=== PATIENT | female | born 1965 | race Hispanic/Latino ===

== ENCOUNTER 2021-01-24 09:56 | Outpatient (CLI) | payer OTHER, SELFPAY ==
[2021-01-24 11:11] LABS: Influenza A QL RT-PCR Negative (Negative); Influenza B QL RT-PCR Negative (Negative); SARS-CoV-2 RNA PCR Positive (Negative)
== END 2021-01-24 09:57 | disposition home or self-care (01) ==
PROVIDERS: PCP Family Medicine; Visit Provider Family Medicine
DX: U07.1 COVID-19 (principal); R05.9 Cough, unspecified
CPT/HCPCS: 87502; C9803; U0003; U0005

== ENCOUNTER 2021-01-25 11:00 | Outpatient (CLI) | payer OTHER, SELFPAY ==
[2021-01-25] MEDS: FAMOTIDINE 20 MG TABLET PO (11:30)
[2021-01-25] MEDS: ACETAMINOPHEN 325 MG TABLET 650 MG PO (11:30)
[2021-01-25] MEDS: diphenhydrAMINE HCl CAP 25 MG CAPSULE PO (11:30)
[2021-01-25 11:35] VITALS: BP 134/81; PULSE 62; RESP 18; TEMP 36.6; O2SAT 95
[2021-01-25 13:00] VITALS: BP 119/69; PULSE 73; RESP 16; TEMP 36.7; O2SAT 94
--- NOTE | 2021-01-25 13:40 | PC.NURSE ---
Patient tolerated infusion well. No s/s of adverse reactions noted. IV site removed, tip intact, dressing applied to site. Education provided to patient about infusion. Denies any questions at this time. Patient accompanied to front door by this nurse, pt. left ambulatory.
== END 2021-01-25 11:01 | disposition home or self-care (01) ==
LOC: CHSLAB 11:02 → CHSTREATRM 11:28
PROVIDERS: PCP Family Medicine; Visit Provider Family Medicine
DX: U07.1 COVID-19 (principal)
CPT/HCPCS: 96365; A9270; J7050; M0243; Q0244

== ENCOUNTER 2022-04-24 08:04 | Outpatient (CLI) | payer OTHER, SELFPAY ==
--- NOTE | ~2022-04-24 | US_ITS ---
EXAMINATION: US right upper quadrant DATE: 04/24/2022 08:49 INDICATION: Abdominal pain. TECHNIQUE: Multiple grayscale and Doppler ultrasound images of the abdomen were obtained. COMPARISON: None FINDINGS: The visualized portions of the head and body of the pancreas are normal. The liver is macrina l without focal lesion. There is normal flow in main portal vein. There is a gallstone in the gallbla dder, which is normal in size. Gallbladder wall thickening is noted. There is no sonographic Powell s ign. The common duct is normal and measures 5 mm. There is a 1.5 cm cyst in right kidney. IMPRESSION: 1. Cholelithiasis. Gallbladder wall thickening may be seen with chronic cholecystitis, chronic liver disease, or interstitial edema. No gallbladder distention or sonographic Powell sign to suggest acute cholecystitis. Reviewed, dictated and finalized at location A. NOLOGY SUPPORT ANALYST IMPRESSION: 1. Cholelithiasis. Gallbladder wall thickening may be seen with chronic cholecy stitis, chronic liver disease, or interstitial edema. No gallbladder distention or sonographic Powell sign to suggest acute cholecystitis.
--- NOTE | ~2022-04-24 | MM_ITS ---
EXAMINATION: MM screening radha BI w [place] HISTORY: Screening mammogram TECHNIQUE: Craniocaudal and mediolateral oblique 3-D tomosynthesis images were obtained and synthetic 2-D images were generated. CAD analysis was submitted and interpreted. COMPARISON: No prior mammogram is available for comparison at this institution. BREAST PARENCHYMAL COMPOSITION: There are scattered areas of fibroglandular density. FINDINGS: There is no evidence of suspicious mass, calcification, or architectural distortion to sugg est malignancy in either breast. IMPRESSION: 1. No mammographic evidence of malignancy. 2. Recommend routine screening mammography in one year. BI-RADS Category 1: Negative Reviewed, dictated and finalized at location A. RITY ASSESSOR
== END 2022-04-24 08:05 | disposition home or self-care (01) ==
LOC: CHSIMG 08:05
PROVIDERS: PCP Family Medicine; Visit Provider Family Medicine
DX: Z12.31 Encounter for screening mammogram for malignant neoplasm of breast (principal); R10.9 Unspecified abdominal pain; K80.20 Calculus of gallbladder without cholecystitis without obstruction
CPT/HCPCS: 76705; 77063; 77067

== ENCOUNTER 2022-05-14 06:18 | Day surgery (SDC) | payer OTHER, SELFPAY ==
[2022-05-07 14:03] VITALS: BMI 37.3
[2022-05-08 09:03] VITALS: BMI 35.2
--- NOTE | 2022-05-13 15:08 | WPDANESEPPF ---
Anes - Initial Pre Proc Eval Procedure: Operation Date: 05/14/22 08:00 Proposed Procedures p Esophagogastroduodenoscopy - Phong Altamirano DO s Screening Colonoscopy - Phong Altamirano DO Date/Time: 05/13/22 15:08 Surgeon: Phong Altamirano DO Pre Op Diagnosis: Epigastric Pain, Cholelithiasis w/Chronic Cholecy. Patient Data Age: 57 Gender: F Height: 1.68 m Weight: 99 kg Allergies Allergy/AdvReac Type Severity Reaction Status Date / Time naproxen Allergy Unknown SWELLING Verified 05/14/22 07:09 OF MOUTH AND THROAT tramadol Allergy Unknown SWELLING Verified 05/14/22 07:09 OF MOUTH AND THROAT Home Medications Medication Instructions Recorded Confirmed Type albuterol sulfate 90 mcg/actuation 1 puff inhalation Q4H 04/29/22 05/14/22 History aerosol inhaler (ProAir HFA) esomeprazole magnesium 40 mg 40 mg PO DAILY 04/29/22 05/14/22 History capsule,delayed release Patient hx anesthesia problems: none Family hx anesthesia problems: none Results Review: All pre-operative results and documents have been reviewed as part of the pre-operative evaluation. [facility] Past Medical History Medical History (Updated 05/13/22 @ 15:08 by Wolf Kebede DO) Asthma GERD (gastroesophageal reflux disease) Surgical History Surgical History S/P breast biopsy, right S/P S/P carpal tunnel release Family History Family History Mother Diabetes mellitus Sibling Breast cancer Cervical cancer Unknown Diabetes mellitus Heart disease Cancer Social History Social History Smoking status: Former smoker Alcohol intake: current Drinks per week: 4 Substance use: never Substance use type: does not use Living arrangements: with family Spiritual care concerns: No Anes - Eval Final PreProcedure Day of Procedure 05/13/22 15:08 Patient weight: obese Heart: regular rate and rhythm Lungs: clear to auscultation Airway: Mallampati scale class II Neurological: alert and oriented Last oral intake: >/= 8 hours ASA classification: II Emergent: no Anesthetic plan: proceed Anesthesia type and monitoring: general GIVS and standard monitoring Results Review: All pre-operative results and documents have been reviewed as part of the pre-operative evaluation. Informed Consent: The patient's anesthetic plan and its attendant risks and benefits were discussed with the patient/family/POA. Questions were solicited and answers provided to the satisfaction of the patient/family/POA.
[2022-05-14 07:15] VITALS: BP 116/72; PULSE 69; RESP 18; TEMP 36.2; O2SAT 100; BMI 35.9
--- NOTE | 2022-05-14 07:29 | WPDHPUPDATE1 ---
History and Physical Update Update Date/Time: 05/14/22 07:29 History and Physical has been reviewed, including an updated exam of the patient. There are NO changes in the patient's condition. Risks, benefits, and alternatives have been discussed and questions answered. Patient agrees to proceed with procedure.
[2022-05-14] MEDS: LACTATED RINGERS 1,000 ML 150 ML IV CONT (07:33)
[2022-05-14 08:37] VITALS: BP 100/69; PULSE 70; RESP 14; O2SAT 99
[2022-05-14 08:47] VITALS: BP 106/57; PULSE 69; RESP 16; O2SAT 99
[2022-05-14 08:57] VITALS: BP 114/73; PULSE 70; RESP 16; O2SAT 99
--- NOTE | 2022-05-14 09:24 | SUR.PHASEII ---
0900; PT AWAKE AND ALERT. TALKATIVE. DENIES PAIN. EATING AND DRINKING.
--- NOTE | 2022-05-14 11:39 | WPDANESPN ---
Anes - Prog Note Post-Op Date/Time: 05/14/22 11:39 Cardiovascular status: normal Respiratory status: normal Airway patency: baseline Mental status: baseline Post-Op hydration status: normal Vital Signs: Last Vital Signs Temp 36.2 C L 05/14/22 07:15 Pulse 70 05/14/22 08:57 Resp 16 05/14/22 08:57 BP 114/73 05/14/22 08:57 Pulse Ox 99 05/14/22 08:57 O2 Del Method Room Air 05/14/22 08:57 Pain Score (VAS): 0 I/O: Intake & Output 05/13/22 05/14/22 05/14/22 23:59 07:59 15:59 Intake Total 1000 Balance 1000 Post-procedural complaints: none Patient Feedback: Patient satisfied with anesthetic care. Other Findings: Patient vital signs back to baseline. Patient denies nausea and vomiting. Patient's pain under control. Patient OK for discharge.
== END 2022-05-14 09:25 | disposition home or self-care (01) ==
PROVIDERS: PCP Family Medicine; Visit Provider Surgery
PROC: 0DJ08ZZ Inspection of Upper Intestinal Tract, Via Natural or Artificial Opening Endoscopic (ICD-10-PCS; CPT 43235; principal; 2022-05-14 08:00)
PROC: 0DJD8ZZ Inspection of Lower Intestinal Tract, Via Natural or Artificial Opening Endoscopic (ICD-10-PCS; CPT 45378; 2022-05-14 08:00)
DX: R10.13 Epigastric pain (principal)
CPT/HCPCS: 45378; 43239

== ENCOUNTER 2022-05-14 09:00 | Outpatient (NON) | payer OTHER, SELFPAY | END 2022-05-14 09:01 | disposition home or self-care (01) | LOC: ANHLAB 05-15 09:13 | PROVIDERS: PCP Family Medicine; Visit Provider Surgery | DX: R10.13 Epigastric pain (principal) | CPT/HCPCS: 88305 ==

== ENCOUNTER 2022-05-28 06:07 | Day surgery (SDC) | payer OTHER, SELFPAY ==
[2022-05-15 10:03] VITALS: BMI 37.3
[2022-05-19 13:23] VITALS: BMI 35.2
[2022-05-28] VITALS (8 sets, daily range): BP systolic 95–119; BP diastolic 51–70; PULSE 52–79; RESP 14–20; TEMP 36.6–36.9; O2SAT 93–99
[2022-05-28] MEDS: ACETAMINOPHEN 500 MG TABLET 1000 MG PO (06:25)
--- NOTE | 2022-05-28 07:18 | PM.IMHP ---
H&P: HPI History of Present Illness Date/Time: 05/28/22 07:18 Chief Complaint: cholelithiasis Narrative: 57 yo woman presents for laparoscopic cholecystectomy. She denies any other changes since last seen in office. Review of Systems Review of Systems: All systems reviewed & are unremarkable except as noted in HPI and below Constitutional: Constitutional: Denies chills, Denies fever(s), Denies headache(s) and Denies weight loss Eyes: Eyes: Denies change in vision ENT: Denies dizziness, Denies headache(s), Denies neck mass and Denies throat swelling Cardiovascular: Cardiovascular: Denies chest pain, Denies lightheadedness and Denies dyspnea Respiratory: Respiratory: Denies cough, Denies dyspnea and Denies wheezing Gastrointestinal: Gastrointestinal: Denies abdominal pain, Denies change in bowel habits, Denies nausea and Denies vomiting Genitourinary: Genitourinary: Denies hematuria and Denies dysuria Musculoskeletal: Musculoskeletal: Reports as per HPI Integumentary/Breasts: Skin/Breast: Reports as per HPI Neurologic: Denies dizziness and Denies headache(s) Allergic/Immunologic: Allergic/Immunologic: Denies throat swelling and Denies wheezing [facility] Past Medical History Medical History (Updated 05/13/22 @ 15:08 by Wolf Kebede DO) Asthma GERD (gastroesophageal reflux disease) Surgical History Surgical History S/P breast biopsy, right S/P S/P carpal tunnel release Family History Family History Mother Diabetes mellitus Sibling Breast cancer Cervical cancer Unknown Diabetes mellitus Heart disease Cancer Social History Social History Smoking status: Former smoker Alcohol intake: current Drinks per week: 4 Substance use: never Substance use type: does not use Living arrangements: with family Spiritual care concerns: No Meds Home Medications and Allergies Home Medications Medication Instructions Recorded Confirmed Type albuterol sulfate 90 mcg/actuation 1 puff inhalation Q4H 04/29/22 05/28/22 History aerosol inhaler (ProAir HFA) esomeprazole magnesium 40 mg 40 mg PO DAILY 04/29/22 05/28/22 History capsule,delayed release Allergies Allergy/AdvReac Type Severity Reaction Status Date / Time naproxen Allergy Unknown SWELLING Verified 05/28/22 06:28 OF MOUTH AND THROAT tramadol Allergy Unknown SWELLING Verified 05/28/22 06:28 OF MOUTH AND THROAT Vital Signs Vital Signs - 24 hr 05/28/22 06:29 Temperature 36.6 C Pulse Rate 79 Respiratory Rate 20 Blood Pressure 118/57 L Pulse Oximetry 98 Oxygen Delivery Room Air Exam Const: General: no acute distress and alert Orientation/consciousness: patient oriented x3 HENMT: Head: normocephalic and atraumatic Ears: hearing grossly normal bilaterally Face/Nose/Sinus: Normal nares present Mouth: Yes Normal oral and palatal mucosa present Eyes: Periorbital: periorbital findings normal Sclera: sclerae normal EOM: EOMs intact bilaterally Neck: Neck: normal visual inspection, no lymphadenopathy and trachea midline Chest: Chest palpation & inspection: normal inspection of the chest Resp: Effort & Inspection: normal respiratory effort Auscultation: clear to auscultation bilaterally Cardio: Jugular venous distension: no JVD Rate: regular rate Rhythm: regular rhythm Heart sounds: S1 normal heart sound present and S2 normal heart sound present Peripheral pulses: Peripheral pulses 2+ throughout GI: Inspection: normal to inspection GI Palp: Yes Soft to palpation, No Tenderness to palpation present (GI), No Guarding due to palpation present (GI) and No Rebound tenderness present Percussion: Yes normal to percussion Auscultation: normal bowel sounds : General: Yes no CVA tenderness Back/Spine/Pel
--- NOTE | 2022-05-28 07:19 | WPDHPUPDATE1 ---
History and Physical Update Update Date/Time: 05/28/22 07:19 History and Physical has been reviewed, including an updated exam of the patient. There are NO changes in the patient's condition. Risks, benefits, and alternatives have been discussed and questions answered. Patient agrees to proceed with procedure.
[2022-05-28] MEDS: LACTATED RINGERS 1,000 ML 30 ML IV CONT (07:23)
[2022-05-28] MEDS: ceFAZolin SODIUM 2 GM/20 ML SW SYRINGE IV PUSH (07:28)
--- NOTE | 2022-05-28 08:25 | W.PM.PROC2 ---
Procedure Note - Detailed Date of Procedure 05/28/22 Pre-op Diagnosis Chronic Cholecystitis with Cholelithiasis Post-op Diagnosis Same Procedure Performed Laparoscopic Cholecystectomy Surgeon Phong Altamirano, DO Anesthesia General and Local (0.5% bupivacaine) Indications This is a 57-year-old woman who presented with upper abdominal pain for the past several months. She has noticed this particularly after eating pizza. She had ultrasound and [place] on 04/24/2022 which showed evidence of cholelithiasis and mild gallbladder wall thickening. She recently underwent EGD and colonoscopy which were fairly unremarkable. Discussions were made with the patient about treatment options and decision was made to proceed with laparoscopic cholecystectomy, possible open. Findings Laparoscopic cholecystectomy was performed. The patient did have some pericholecystic adhesions and mild chronic gallbladder wall thickening. There was 1 stone within the gallbladder. No other intra-abdominal abnormalities were noted and the cystic duct appeared normal in size. The gallbladder was removed and sent to the lab for pathology. Description of Procedure Procedure as well as risks, benefits, and alternatives were discussed with patient. Written consent was obtained and placed in chart prior to procedure. The patient was brought back to surgical suite. Patient was placed in supine position on operating table. Time-out was done to confirm patient and procedure. Patient was then intubated by the anesthesia department. Abdomen was prepped and draped in sterile fashion using chlorhexidine prep. 0.5% bupivacaine with epinephrine was infiltrated at each site of incision. A 5 millimeter incision was made near the umbilicus, and a 5 millimeter Optiview trocar was advanced through the abdominal layers under direct visualization. Once inside the abdominal cavity, carbon dioxide was insufflated to create a pneumoperitoneum. The camera was inserted and the abdomen was inspected. No immediate abnormalities were identified. The patient was placed in reverse Trendelenburg position and rotated slightly to the left. An 11 millimeter incision was made in the subxiphoid region, and an 11 millimeter trocar was inserted under direct visualization. Two 5 millimeter incisions were made in the right upper quadrant, and two 5 millimeter trocars were inserted under direct visualization. The gallbladder was identified and grasped at the fundus and retracted superiorly. It was then grasped at the infundibulum retracted laterally. Careful dissection around the neck of the gallbladder was performed using blunt dissection with a [place] grasper and hook electrocautery. The cystic duct was identified, and a window was created behind it. The cystic artery was also identified and a window was created behind it. The critical view of safety was identified, visualizing the cystic duct running directly into the neck of the gallbladder, and the cystic artery running directly into the wall of the gallbladder. A 5 millimeter clip overhead door technician was then used to place 2 clips proximally and 1 clip distally on both the cystic duct and cystic artery. They were then both transected using endoscopic scissors. Once safely away from the prince hepatitis, the gallbladder was dissected free from the liver bed using hook electrocautery. Hemostasis was achieved along the way. The gallbladder was removed completely and then removed through the subxiphoid port. The liver bed was then inspected. Hemostasis appeared adequate, and our clips appeared secure. The area was gently irrigated with sterile saline. No other abnormalities were seen. The patient was flattened out in bed, and 1 final inspection was made around the abdominal cavity. The subxiphoid port was removed, and a Stanley Estrada cone was used to approximate the fascia with an 0-Vicryl simple interrupted suture. The remaining ports were then removed under direct v
--- NOTE | 2022-05-28 08:52 | SUR.PHASEI ---
PT RESTING QUIETLY. SLEEPING IN INTERVALS. AWAKENS EASILY. DENIES PAIN OR NAUSEA. HOB ELEVATED 30 DEGREES.
[2022-05-28] MEDS: oxyCODONE HCL (*CRX) 5 MG TAB IR PO (09:28)
--- NOTE | 2022-05-28 09:58 | WPDANESPN ---
Anes - Prog Note Post-Op Date/Time: 05/28/22 09:58 Cardiovascular status: normal Respiratory status: normal Airway patency: baseline Mental status: baseline Post-Op hydration status: normal Vital Signs: Last Vital Signs Temp 36.9 C 05/28/22 08:23 Pulse 63 05/28/22 09:30 Resp 18 05/28/22 09:30 BP 95/60 L 05/28/22 09:30 Pulse Ox 99 05/28/22 09:30 O2 Del Method Room Air 05/28/22 09:30 O2 Flow Rate 6 05/28/22 08:50 Pain Score (VAS): 3 I/O: Intake & Output 05/27/22 05/28/22 05/28/22 23:59 07:59 15:59 Intake Total 150 Output Total 800 Balance -650 Patient Feedback: Patient satisfied with anesthetic care.
--- NOTE | 2022-06-04 16:46 | P.PNAN_ITS ---
Anes - Initial Pre Proc Eval Procedure: Operation Date: 05/28/22 07:30 Proposed Procedures p Laparoscopic Cholecystectomy - Phong Altamirano DO Date/Time: 06/04/22 16:46 Surgeon: Phong Altamirano DO Pre Op Diagnosis: Chronic Cholecystitis with Cholelithiasis Patient Data Age: 57 Gender: F Height: 1.68 m Weight: 99 kg Last Vital Signs Temp 36.9 C 05/28/22 08:23 Pulse 62 05/28/22 10:00 Resp 18 05/28/22 10:00 BP 101/57 L 05/28/22 10:00 Pulse Ox 99 05/28/22 10:00 O2 Del Method Room Air 05/28/22 10:00 O2 Flow Rate 6 05/28/22 08:50 Allergies Allergy/AdvReac Type Severity Reaction Status Date / Time naproxen Allergy Unknown SWELLING Verified 05/28/22 06:28 OF MOUTH AND THROAT tramadol Allergy Unknown SWELLING Verified 05/28/22 06:28 OF MOUTH AND THROAT Home Medications Medication Instructions Recorded Confirmed Type albuterol sulfate 90 mcg/actuation 1 puff inhalation Q4H 04/29/22 05/28/22 History aerosol inhaler (ProAir HFA) esomeprazole magnesium 40 mg 40 mg PO DAILY 04/29/22 05/28/22 History capsule,delayed release hydrocodone 5 mg-acetaminophen 325 1 tablet PO Q4H PRN pain #10 tabs 05/28/22 Rx mg tablet Patient hx anesthesia problems: none Family hx anesthesia problems: none Results Review: All pre-operative results and documents have been reviewed as part of the pre- operative evaluation. [facility] Past Medical History Medical History Asthma GERD (gastroesophageal reflux disease) Surgical History Surgical History S/P breast biopsy, right S/P S/P carpal tunnel release Family History Family History Mother Diabetes mellitus Sibling Breast cancer Cervical cancer Unknown Diabetes mellitus Heart disease Cancer Social History Social History Smoking status: Former smoker Alcohol intake: current Drinks per week: 4 Substance use: never Substance use type: does not use Living arrangements: with family Spiritual care concerns: No Comments late entry for 05/28/2022 case Anes - Eval Final PreProcedure Day of Procedure 06/04/22 16:46 Patient weight: obese Lungs: clear to auscultation Airway: Mallampati scale class II Neurological: alert and oriented Last oral intake: >/= 8 hours ASA classification: II Emergent: no Anesthetic plan: proceed Anesthesia type and monitoring: general ETT and standard monitoring Results Review: All pre-operative results and documents have been reviewed as part of the pre- operative evaluation. Informed Consent: The patient's anesthetic plan and its attendant risks and benefits were discussed with the patient/family/POA. Questions were solicited and answers provided to the satisfaction of the patient/family/POA.
== END 2022-05-28 10:10 | disposition home or self-care (01) ==
PROVIDERS: PCP Family Medicine; Visit Provider Surgery
PROC: 0FT44ZZ Resection of Gallbladder, Percutaneous Endoscopic Approach (ICD-10-PCS; CPT 47562; principal; 2022-05-28 07:30)
DX: K80.10 Calculus of gallbladder with chronic cholecystitis without obstruction (principal)
CPT/HCPCS: 47562

== ENCOUNTER 2022-05-28 08:24 | Outpatient (NON) | payer OTHER, SELFPAY | END 2022-05-28 08:25 | disposition home or self-care (01) | PROVIDERS: PCP Family Medicine; Visit Provider Surgery | DX: K80.10 Calculus of gallbladder with chronic cholecystitis without obstruction (principal) | CPT/HCPCS: 88304 ==